=== PATIENT | female | born 1965 | race Caucasian/White ===

== ENCOUNTER 2025-04-19 06:10 | Day surgery (SDC) | payer BC ==
[2025-04-19] VITALS (13 sets, daily range): BP systolic 86–129; BP diastolic 53–82
[~2025-04-19] VITALS: Ht 170.2 cm; Wt 89.9 kg
[~2025-04-19 06:10] MED LIST: BUPR150ER PO; GABA100 PO; HYDROCHLOROTH12.5 MG PO
[2025-04-19] MEDS ORDERED: Chlorhexidine Mouth Care 15 ML UDC MT SCH (06:20)
[2025-04-19] MEDS ORDERED: Tranexamic Acid 100 ML IV SCH (06:20)
[2025-04-19] MEDS ORDERED: Ropivacaine 0.5% HCl/Pf 123.125 MG,EPINEPHrine HCL 0.25 MG,Ketorolac Tromethamine 15 MG... INFIL SCH (06:20)
[2025-04-19] MEDS ORDERED: CeFAZolin Sodium 2,000 MG in NS 100 ML IV SCH ×2 (06:20→16:00)
[2025-04-19] MEDS ORDERED: CeFAZolin Sodium 2,000 MG VIAL ONE (06:43)
[2025-04-19] MEDS ORDERED: Midazolam HCl 1MG / ML 2ML Vial ONE (07:15)
[2025-04-19] MEDS ORDERED: FentaNYL Citrate 50 MCG/ML 2 ML Injection ONE (07:15)
--- NOTE | 2025-04-19 07:24 | NUR ---
Ambulatory in Day Surgery WITH USE OF CANE. History, Chart, Medications and Allergies reviewed before start of procedure. Pre-Op teaching done. Pt verbalizes understanding. Patient confirms NPO status and agrees with scheduled surgery. Patient States Post-Procedure ride home has been arranged WITH NEIGHBOR. ALL BELONGINGS INCLUDING GLASSES, CELL PHONE AND CANE PLACED UNDER GURN.
[2025-04-19] MEDS ORDERED: FLU VACC TS2025-26(6MOS UP)/PF 45 MCG/0.5 ML SYRINGE IM SCH (07:45)
[2025-04-19] MEDS ORDERED: Ondansetron HCl 2 MG / ML 2ML Vial IV PRN ×2 (07:50→08:10)
[2025-04-19] MEDS ORDERED: Magnesium Hydroxide Conc 10 ML UDC PO PRN (07:50)
[2025-04-19] MEDS ORDERED: Metoclopramide HCl 5MG / ML 2ML Vial IV PRN (07:50)
[2025-04-19] MEDS ORDERED: ePHEDrine Sulfate 50 MG/ML 1ML Injection ONE (07:51)
[2025-04-19] MEDS ORDERED: HYDROmorphone HCl/Pf 1MG SYR IV PRN ×3 (07:55→08:15)
[2025-04-19] MEDS ORDERED: Prochlorperazine Edisylate 10 mg Vial IV PRN ×2 (08:00→08:15)
[2025-04-19] MEDS ORDERED: Dexamethasone Sod Phos 10 MG/ML 1ML VIAL ONE (08:01)
[2025-04-19] MEDS ORDERED: Albuterol 2.5 MG/3 ML VIAL INH PRN (08:10)
[2025-04-19] MEDS ORDERED: Phenylephrine HCl 100 MCG/ML-NS 10MLSYR (1MG/10ML) ONE ×2 (08:13→09:02)
[2025-04-19] MEDS ORDERED: FentaNYL Citrate 50 MCG/ML 2 ML Injection IV PRN ×2 (08:15)
--- NOTE | 2025-04-19 10:34 | NUR ---
ARRIVAL TO UNIT PT ARRIVED TO UNIT. A/OX4. DRESSING C/D/I. TOLERATING PO INTAKE AT THIS TIME. DENIES N/V. DENIES PAIN. ABLE TO WIGGLE TOES. LIMITED SENSATION DUE TO SPINAL.
[2025-04-19] MEDS ORDERED: Ketorolac Tromethamine 15mg Vial IV SCH (12:00)
[2025-04-19] MEDS ORDERED: ACET500 PO (13:04)
[2025-04-19] MEDS ORDERED: ASPI81CH PO (13:05)
[2025-04-19] MEDS ORDERED: OXYC5 PO (13:07)
--- NOTE | 2025-04-19 15:58 | NUR ---
DISCHARGE PT HAS WORKED w/ THERAPY. PAIN WELL CONTROLLED. EATING, DRINKING, & VOIDING WELL. EXPERIENCED NAUSEA x 1 WHEN AMBULULATING w/ THERAPY, BUT HAS RESOLVED. EXCITED FOR DC HOME. POLAR PACK PACKED & WAITING ON RIDE.
--- NOTE | 2025-04-19 16:07 | NUR ---
ESCORTED OUT VIA W/C.
== END 2025-04-19 16:10 | disposition home or self-care (01) ==
LOC: ORSCMMR 06:10 → ORD 07:30 → SURS 10:20 → ORSCMMR 16:10
PROVIDERS: Orthopaedic Surgery
PROC: 0SR90JA Replacement of Right Hip Joint with Synthetic Substitute, Uncemented, Open Approach (ICD-10-PCS; principal; 2025-04-19 07:30)
DX: M16.11 Unilateral primary osteoarthritis, right hip (principal); F41.9 Anxiety disorder, unspecified; Z79.899 Other long term (current) drug therapy
CPT/HCPCS: 72170; 97110; 97116; 97162; 97530; A9270; C1713; C1776; J0166; J0690; J0735; J1100; J1885; J2250; J2371; J2405; J2704; J2795; J3010; J3373; J7050; J7120